=== PATIENT | female | born 1990 | race Caucasian/White ===

== ENCOUNTER 2021-07-24 18:11 | Inpatient (IN) | payer OTHER ==
[~2021-07-24 18:11] MED LIST: DIPHENHYDRAMINE25 M1 PO; ESCITALOPRAM OX20 MG PO; HYDROXYZINE PAM25 MG PO
--- NOTE | 2021-07-25 09:19 | PR ---
[facility] [address] [facility] [place], [place] [address] Signed PP Progress Notes Datetime Report Generated by CPN: 07/25/2021 09:19 SUBJECTIVE: [id number] Pain: Within Normal Limits Nausea/Vomiting: Denies Flatus: Yes Bowel Movement: No Vital Signs: [id number] Vital Signs: Reviewed; Within Normal Limits EXAM: Ongoing Cardiovascular: Normal Respiratory: Normal Abdomen/Uterus: Normal Lochia: Normal Vulva/Perineum: Not Done Breasts: Not Done CVA Tenderness: Normal Extremities: Normal Incision: Not Applicable Progress: Not Applicable Exam Comments: Fundus firm U-2 nontender IMPRESSION/PLAN/PROCEDURES: [id number] Impression: Normal Progression Plan: Continue Present Management Progress Notes: Pt seen and examined. Doing well. Ambulating, voiding, and tolerating full diet. Pain and lochia minimal. Bottlefeeding. No fevers/chills or other concerns. No respiratorty sx w/ COVID. Anticipate d/c to border status tomorrow. Signing Physician: Rodo Marino DO Copies: ~ *Electronically Signed* 07/25/21 0919 RODO MARINO DO PATIENT NAME: ESTEPHANIA LIANG PROGRESS NOTE DATE OF : 88 PHYSICIAN: RODO MARINO DO RPT #: [id number] REPORT IS CONFIDENTIAL AND NOT TO BE RELEASED WITHOUT AUTHORIZATION
--- NOTE | 2021-07-26 13:36 | PR ---
[facility] [address] [facility] [place], [place] [address] Signed PP Progress Notes Datetime Report Generated by CPN: 07/26/2021 13:36 SUBJECTIVE: [id number] Pain: Within Normal Limits Nausea/Vomiting: Denies Flatus: Yes Bowel Movement: No Vital Signs: [id number] Vital Signs: Reviewed; Within Normal Limits EXAM: Ongoing Cardiovascular: Normal Respiratory: Normal Abdomen/Uterus: Normal Lochia: Normal Vulva/Perineum: Not Done Breasts: Not Done CVA Tenderness: Normal Extremities: Normal Incision: Not Applicable Progress: Not Applicable Exam Comments: Fundus firm U-2 nontender IMPRESSION/PLAN/PROCEDURES: [id number] Impression: Normal Progression Plan: Continue Present Management Progress Notes: Pt seen and examined. Doing well. Ambulating, voiding, and tolerating full diet. Pain and lochia minimal. Bottlefeeding. No fevers/chills or other concerns. Pt will be discharged to [facility]. She has sufficient home dose of buprenorphine. No other questions or concerns. Signing Physician: Rodo Marino DO Copies: ~ *Electronically Signed* 07/26/21 6119 RODO MARINO DO PATIENT NAME: ESTEPHANIA LIANG PROGRESS NOTE DATE OF : 88 PHYSICIAN: RODO MARINO DO RPT #: [id number] REPORT IS CONFIDENTIAL AND NOT TO BE RELEASED WITHOUT AUTHORIZATION
--- NOTE | 2021-08-05 09:44 | PATH ---
[facility] [address] [place], [place] [address] Signed SPECIMEN(S): A PLACENTA, 3RD TRIMESTER SPECIMEN SOURCE: A. PLACENTA, 3RD TRIMESTER CLINICAL HISTORY: Mother's age: 31. OB history: A - (spontaneous). Gestational age: 37 and 1. Infant's weight: 6 lbs 12 oz. score: 8/9. Rh negative. Antibody screen: Negative. Maternal serologies: Rubella immune, hepatitis screen negative, GBS negative. Specific issues of concern: COVID positive. FINAL PATHOLOGIC DIAGNOSIS: Placenta (409 grams), umbilical cord and membranes: - Placental weight: Approximately 33rd percentile for gestational age. - Chorionic villi with - Appropriate maturation for gestational age. - Focal microcalcifications. - No significant villous infarction identified. - No evidence of trophoblastic disease. - Three-vessel umbilical cord without pathologic abnormality. - membranes with acute chorioamnionitis. SHIRLEYK:[facility]:C2NR MICROSCOPIC EXAMINATION: Histologic sections of all submitted blocks are examined by light microscopy. These findings, together with the gross examination, support the pathologic diagnosis. GROSS DESCRIPTION: The specimen, labeled "CC, placenta," is received fresh and placed in formalin and consists of a casarez discoid placenta with the following parameters: Umbilical cord: Insertion eccentric, measurement 7.5 x 0.9 cm; trivascular. Cord coiling index (per 10 cm): Cannot be determined. Lesions: Not grossly identified. Membranes: Insertion site: Marginal, king/translucent, rupture site unremarkable. Intact. Other: Not grossly identified. Chorionic Plate: Normal radiating vascular pattern, blue-purple and shiny. Lesions: Not grossly identified. Other: Not grossly identified. Maternal Surface: Normal cotyledons, intact. Lesions: Not grossly identified. Measurement: 20.0 x 16.5 x 0.9 cm. Weight (trimmed): 409 grams. PATIENT NAME: ESTEPHANIA LIANG PATHOLOGY DATE OF : 88 REPORT #: [id number] PHYSICIAN: [facility] PCP: UNASSIGNED DOCTOR REPORT IS CONFIDENTIAL AND NOT TO BE RELEASED WITHOUT AUTHORIZATION [facility] [address] [place], [place] [address] Signed Cut Surface: Maroon and spongy. Lesions: Not grossly identified. Basal plate fibrin measures 0.1 cm in thickness. Other Findings: Not grossly identified. Cassette Summary: (A1) Membranes and umbilical cord (A2) Placenta parenchyma (A3) Placenta parenchyma (A4) Placenta parenchyma JS (under the direct supervision of a pathologist) The Gross Description was prepared using a voice recognition system. The report was reviewed for accuracy; however, sound-alike word errors, addition and/or deletions may occur. If there is any question about this report, please contact Client Services. PERFORMING LABORATORY: The technical component was performed by [facility], [address] [place] [id number] (Meteorology Instructor: Camelia Wilde MD; CLIA# [id number]). Professional interpretation was performed by [facility], [address] [place] [id number] (Meteorology Instructor: Camelia Wilde MD; CLIA# [id number]). Diagnostician: Memo Salas MD Pathologist Electronically Signed 07/31/2021 Copies: ~ PATIENT NAME: ESTEPHANIA LIANG PATHOLOGY DATE OF : 88 REPORT #: [id number] PHYSICIAN: [facility] PCP: UNASSIGNED DOCTOR REPORT IS CONFIDENTIAL AND NOT TO BE RELEASED WITHOUT AUTHORIZATION
== END 2021-07-26 20:45 | disposition home or self-care (01) | DRG 805 ==
LOC: FBCO 18:11 → FBC 18:28
PROVIDERS: ADMIT Obstetrics & Gynecology; ATTEND Obstetrics & Gynecology
PROC: 10E0XZZ Delivery of Products of Conception, External Approach (ICD-10-PCS; principal; 2021-07-24)
PROC: 0KQM0ZZ Repair Perineum Muscle, Open Approach (ICD-10-PCS; 2021-07-24)
PROC: 8E0ZXY6 Isolation (ICD-10-PCS; 2021-07-24)
DX: O62.3 Precipitate labor (principal); U07.1 COVID-19; Z37.0 Single live birth; O98.52 Other viral diseases complicating childbirth; Z3A.37 37 weeks gestation of pregnancy; O99.324 Drug use complicating childbirth; O70.1 Second degree perineal laceration during delivery; O99.344 Other mental disorders complicating childbirth; F32.A Depression, unspecified; F12.90 Cannabis use, unspecified, uncomplicated
CPT/HCPCS: 01960; 36415; 85027; 86850; 86900; 86901; 88307; A9270; C9803; J1644; J2590; J2795; J3010; J7121; U0003